=== PATIENT | male | born 1955 | race Caucasian/White ===

== ENCOUNTER 2021-07-22 09:28 | Day surgery (SDC) | payer MEDICARE | END 2021-07-22 10:10 | disposition home or self-care (01) | LOC: SDC-PAIN 09:28 | PROVIDERS: ATTEND Psychiatry & Neurology Pain Medicine | DX: Z53.09 Procedure and treatment not carried out because of other contraindication (principal); E11.9 Type 2 diabetes mellitus without complications; B02.29 Other postherpetic nervous system involvement; Z79.899 Other long term (current) drug therapy | CPT/HCPCS: 82947 ==

== ENCOUNTER 2021-07-22 10:17 | Emergency (ER) | payer MEDICARE ==
--- NOTE | 2021-07-22 10:36 | ERPHSYRPT ---
- History of Present Illness Time Seen by Provider: 07/22/21 10:35 Source: patient Exam Limitations: no limitations Patient Subjective Stated Complaint: SOB Triage Nursing Assessment: Patient brought back to ED via w/c and transferred self to bed. Patient A+O x3. Patient's skin pink, warm and dry. Patient states he was here at hospital to get a pain injection done per Dr. Cortes when they checked his blood sugar and it was [address] Cortes would not do injection. Patient stated he has been having left sided abdominal pain, which is causing him to have SOB. Lungs clear a/p thao. Physician History: This is a 65-year-old obese white male who has chronic low back pain and sees Dr. Cortes periodically for injections of steroids in his back. A blood sugar was obtained prior to injection and was 273 and therefore the procedure was canceled. Patient also has a left lower quadrant colostomy in place. Has been there approximately 5 to 6 months. He has pain at the colostomy site as well. Patient was sent to the emergency room because of his level of pain and blood sugar of 273. Patient has a history of hypertension, elevated cholesterol and type 2 diabetes. Patient smokes cigarettes daily. Patient had some shortness of breath but he felt this was secondary to the pain is having in his back and colostomy site. Timing/Duration: today Activities at Onset: none Severity of Dyspnea-Max: mild Severity of Dyspnea-Current: mild (To moderate to moderate) Possible Cause: occasional episodes Associated Symptoms: No cough, No chest pain/discomfort, No wheezing Allergies/Adverse Reactions: No Known Drug Allergies Allergy (Unverified 07/22/21 10:19) Hx Influenza Vaccination/Date Given: No Hx Pneumococcal Vaccination/Date Given: No Immunizations Up to Date: Yes Travel Risk - International Travel Have you traveled outside of the country in past 3 weeks: No - Coronavirus Screening Are you exhibiting any of the following symptoms?: No Close contact with a COVID-19 positive Pt in past 14-21 Days: No - Vaccine Status Have you recieved a Covid-19 vaccination: Yes 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 - Vaccination Dates Date of 2cond Vaccination (if applicable): na Dates if Unknown: na - Review of Systems Constitutional: No Symptoms Eyes: No Symptoms Ears, Nose, & Throat: No Symptoms Respiratory: No Symptoms, No Cough, No Dyspnea Cardiac: No Symptoms, No Chest Pain Abdominal/Gastrointestinal: Abdominal Pain (Pericolostomy in the left lower quadrant), No Nausea, No Vomiting Genitourinary Symptoms: No Symptoms Musculoskeletal: Back Pain Skin: No Symptoms Neurological: No Symptoms Psychological: No Symptoms Endocrine: No Symptoms Hematologic/Lymphatic: No Symptoms Immunological/Allergic: No Symptoms All Other Systems: Reviewed and Negative - Past Medical History Pertinent Past Medical History: Yes Neurological History: No Pertinent History Cardiac History: High Cholesterol, Hypertension Endocrine Medical History: Diabetes Type II Musculoskeletal History: No Pertinent History GI Medical History: GERD History: No Pertinent History Psycho-Social History: No Pertinent History Male Reproductive Disorders: No Pertinent History Other Medical History: chronic back pain sees Dr. Almodovar - Past Surgical History Past Surgical History: Yes Neuro Surgical History: No Pertinent History Cardiac: No Pertinent History Respiratory: No Pertinent History Gastrointestinal: Bowel Surgery Genitourinary: No Pertinent History Musculoskeletal: Orthopedic Surgery Male Surgical History: No Pertinent History Other Surgical History: double hip replacement. colostomy 6 months ago - Social History Smoking Status: Current every day smoker How long have you smoked: years Exposure to second hand smoke: No Drug Use: none Patient Lives Alone: Yes - Nursing Vital Signs Nursing Vital Signs: Initial Vital Signs Temperature 97.2 F 07/22/21 10:22 Pulse Rate 87 07/22/21 10:22 Respiratory Rate 18 07/22/21 10:22 Blood Pressure 162/93 07/22/21 10:22 O2 Sat by Pulse Oximetry 98 07/22/21 10:22 Pain Scale Pain Intensity 5 - Physical Exam General Appearance: no apparent distress, alert, anxiety, obese Eye Exam: PERRL/EOMI, eyes nml inspection Ears, Nose, Throat Exam: hearing grossly normal, normal ENT inspection, normal pharynx Neck Exam: normal inspection, non-tender, supple, full range of motion Respiratory Exam: normal breath sounds, lungs clear, airway intact, No chest tenderness, No respiratory distress Cardiovascular/Chest Exam: normal heart sounds, regular rate/rhythm Abdominal/Gastrointestinal Exam: soft, normal bowel sounds, tenderness (Mild when palpating around the ostomy site in the left lower quadrant.), other (No evidence of any periostomy infection or abscess. Skin is intact. 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, normal mood/affect, sensation nml Skin Exam: normal color, warm, dry Lymphatic Exam: No adenopathy SpO2 Interpretation: normal SpO2: 98 O2 Delivery: Room Air - Course Nursing assessment & vital signs reviewed: Yes Ordered Tests: Active Orders 24 hr Category Date Time Status EKG-ER Only STAT Care 07/22/21 10:51 Active Pulse Oximetry (ED) STAT Care 07/22/21 10:51 Active CHEST WITH CONTRAST [CT] Stat Exams 07/22/21 13:17 Completed CBC W DIFF Stat Lab 07/22/21 10:55 Completed CMP Stat Lab 07/22/21 10:55 Completed D-DIMER QUANTITATIVE Stat Lab 07/22/21 11:15 Completed Lactic Acid Stat Lab 07/22/21 10:51 Completed Lactic Acid Stat Lab 07/22/21 13:03 Received NT PRO BNP Stat Lab 07/22/21 10:55 Completed TROPONIN Q3H Lab 07/22/21 10:55 Completed TROPONIN Q3H Lab 07/22/21 14:00 Ordered TROPONIN Q3H Lab 07/22/21 17:00 Ordered TROPONIN Q3H Lab 07/22/21 20:00 Ordered TROPONIN Q3H Lab 07/22/21 23:00 Ordered Medication Summary Discontinued Medications Generic Name Dose Route Start Last Admin Trade Name Freq PRN Reason Stop Dose Admin Hydromorphone HCl 1 mg 07/22/21 12:09 07/22/21 12:35 Hydromorphone 1 Mg/1ml Inj 1 Mg/Ml Syringe IM 07/22/21 12:10 1 mg STAT ONE Administration Hydromorphone HCl Confirm 07/22/21 12:18 Hydromorphone 1 Mg/1ml Inj 1 Mg/Ml Syringe Administered 07/22/21 12:19 Dose 1 mg .ROUTE .STK-MED ONE Sodium Chloride 500 mls @ 500 mls/hr 07/22/21 11:37 07/22/21 13:25 Sodium Chloride 0.9% 500 Ml IV 07/22/21 12:36 Infused .Q1H ONE Infusion Sodium Chloride Confirm 07/22/21 11:55 Sodium Chloride 0.9% 500 Ml Administered 07/22/21 11:56 Dose 500 mls @ ud IV .STK-MED ONE Prochlorperazine Edisylate 5 mg 07/22/21 12:09 07/22/21 12:34 Prochlorperazine Edisylate 10 Mg/2 Ml Vial IM 07/22/21 12:10 5 mg STAT ONE Administration Prochlorperazine Edisylate Confirm 07/22/21 12:18 Prochlorperazine Edisylate 10 Mg/2 Ml Vial Administered 07/22/21 12:19 Dose 10 mg .ROUTE .STK-MED ONE Lab/Rad Data: Laboratory Result Diagrams 07/22/21 10:55 07/22/21 10:55 Laboratory Results 07/22/21 07/22/21 07/22/21 Range/Units 11:15 10:55 10:55 WBC (4.0-10.5) K/mm3 RBC (4.1-5.6) M/mm3 Hgb (12.5-18.0) gm/dl Hct (42-50) % MCV (78-100) fl MCH (26-32) pg MCHC (32-36) g/dl RDW (11.5-14.0) % Plt Count (150-450) K/mm3 MPV (7.5-11.0) fl Gran % (36.0-66.0) % Eos # (Auto) (0-0.5) Absolute Lymphs (auto) (1.0-4.6) Absolute Monos (auto) (0.0-1.3) Lymphocytes % (24.0-44.0) % Monocytes % (0.0-12.0) % Eosinophils % (0.00-5.0) % Basophils % (0.0-0.4) % Absolute Granulocytes (1.4-6.9) Basophils # (0-0.4) D-Dimer 1002 H* (215-500) ng/mL Sodium 137 (137-145) mmol/L Potassium 4.0 (3.5-5.1) mmol/L Chloride 107 (98-107) mmol/L Carbon Dioxide 21 L (22-30) mmol/L Anion Gap 13.7 (5-15) MEQ/L BUN 17 (9-20) mg/dL Creatinine 0.81 (0.66-1.25) mg/dL Estimated GFR > 60.0 ML/MIN Glucose 271 H (74-106) mg/dL Lactic Acid (0.4-2.0) Calcium 9.2 (8.4-10.2) mg/dL Total Bilirubin 0.60 (0.2-1.3) mg/dL AST 21 (17-59) U/L ALT 18 (0-50) U/L Alkaline Phosphatase 115 (38-126) U/L Troponin I < 0.012 (0.000-0.034) ng/mL NT-Pro-B Natriuret Pep 301 (0-900) pg/mL Serum Total Protein 7.0 (6.3-8.2) g/dL Albumin 4.0 (3.5-5.0) g/dL 07/22/21 07/22/21 Range/Units 10:55 10:51 WBC 12.2 H (4.0-10.5) K/mm3 RBC 5.40 (4.1-5.6) M/mm3 Hgb 15.0 (12.5-18.0) gm/dl Hct 44.7 (42-50) % MCV 82.8 (78-100) fl MCH 27.8 (26-32) pg MCHC 33.6 (32-36) g/dl RDW 14.4 H (11.5-14.0) % Plt Count 251 (150-450) K/mm3 MPV 11.7 H (7.5-11.0) fl Gran % 74.0 H (36.0-66.0) % Eos # (Auto) 0.50 (0-0.5) Absolute Lymphs (auto) 1.36 (1.0-4.6) Absolute Monos (auto) 1.29 (0.0-1.3) Lymphocytes % 11.1 L (24.0-44.0) % Monocytes % 10.5 (0.0-12.0) % Eosinophils % 4.1 (0.00-5.0) % Basophils % 0.3 (0.0-0.4) % Absolute Granulocytes 9.05 H (1.4-6.9) Basophils # 0.04 (0-0.4) D-Dimer (215-500) ng/mL Sodium (137-145) mmol/L Potassium (3.5-5.1) mmol/L Chloride (98-107) mmol/L Carbon Dioxide (22-30) mmol/L Anion Gap (5-15) MEQ/L BUN (9-20) mg/dL Creatinine (0.66-1.25) mg/dL Estimated GFR ML/MIN Glucose (74-106) mg/dL Lactic Acid 2.2 H (0.4-2.0) Calcium (8.4-10.2) mg/dL Total Bilirubin (0.2-1.3) mg/dL AST (17-59) U/L ALT (0-50) U/L Alkaline Phosphatase (38-126) U/L Troponin I (0.000-0.034) ng/mL NT-Pro-B Natriuret Pep (0-900) pg/mL Serum Total Protein (6.3-8.2) g/dL Albumin (3.5-5.0) g/dL - Progress Progress: improved, re-examined Air Movement: good Progress Note: 07/22/21 13:34 CTA of chest shows no pneumothorax. There is no pulmonary embolus. There is no evidence of any pneumonia or acute cardiopulmonary process. Blood Culture(s) Obtained: No Antibiotics given: No Counseled pt/family regarding: lab results, diagnosis, need for follow-up, rad results - Departure Departure Disposition: Home Clinical Impression: Acute exacerbation of chronic low back pain, Hyperglycemia Condition: Stable Critical Care Time: No Referrals: RADHA VO MD [Primary Care Provider] - Follow up/PCP as directed Additional Instructions: Call your prescribing physician today to make arrangements for both a follow-up appointment and for them to refill your gabapentin medication if indicated. Take your medications as prescribed. Prescriptions: Hydrocodone/APAP 5/325 [[place] 5/325 mg] 1 each PO Q12H PRN PRN #4 tablet MDD 2 PRN Reason: Pain Orphenadrine Citrate 100 mg [Norflex 100 MG Tablet] 100 mg PO BID #10 tab
[2021-07-22 11:03] LABS: Absolute Neutrophil Ct (ANC) 9.05 (1.4-6.9); Basophil (Absolute #) 0.04 (0-0.4); Eosinophil % 4.1 % (0.00-5.0); Hematocrit 44.7 % (42-50); Lymphocyte (Absolute #) 1.36 (1.0-4.6); Lymphocytes % 11.1 % (24.0-44.0); Mean Cell Volume 82.8 fl (78-100); Mean Corpuscular Hemoglobin 27.8 pg (26-32); Mean Corpuscular Hgb Concent. 33.6 g/dl (32-36); Mean Platelet Volume 11.7 fl (7.5-11.0); Monocyte (Absolute #) 1.29 (0.0-1.3); Monocytes % 10.5 % (0.0-12.0); Platelet Count 251 K/mm3 (150-450); Red Cell Distribution Width 14.4 % (11.5-14.0); White Blood Count 12.2 K/mm3 (4.0-10.5)
[2021-07-22 11:26] LABS: ALKALINE PHOSPHATASE 115 U/L (38-126); ANION GAP 13.7 MEQ/L (5-15); BLOOD UREA NITROGEN 17 mg/dL (9-20); CHLORIDE 107 mmol/L (98-107); Calcium 9.2 mg/dL (8.4-10.2); Carbon Dioxide 21 mmol/L (22-30); Creatinine 1 0.81 mg/dL (0.66-1.25); EST GLOMERULAR FILTRATION RATE > 60.0 ML/MIN; Glucose 271 mg/dL (74-106); NT PRO BNP 301 pg/mL (0-900); SGOT/AST 21 U/L (17-59); SGPT/ALT 18 U/L (0-50); SODIUM 137 mmol/L (137-145)
[2021-07-22] MEDS ORDERED: Sodium Chloride 0.9% 500 ML 500 ML IV ONE ×2 (11:37→11:55)
[2021-07-22] MEDS ORDERED: Compazine 10 MG/2 ML IM ONE (12:09)
[2021-07-22] MEDS ORDERED: Hydromorphone 1 mg/ml Injection IM ONE (12:09)
[2021-07-22] MEDS ORDERED: Hydromorphone 1 mg/ml Injection ONE (12:18)
[2021-07-22] MEDS ORDERED: Compazine 10 MG/2 ML ONE (12:18)
--- NOTE | 2021-07-22 13:30 | XRAY ---
Indication: Short of breath. Elevated d-dimer and WBC. Multiple contiguous axial images obtained through the chest using 80 cc Isovue 370 contrast and PE protocol. Comparison: None There is good opacification of the pulmonary arteries to include the lobar and segmental branches. No pulmonary embolus. Heart is not enlarged. Aorta is minimally arteriosclerotic without aneurysm/dissection. No pathologic mediastinal/hilar lymphadenopathy. Lungs inflated and clear. Bony thorax intact with mild degenerative changes throughout the spine. Limited upper abdomen demonstrates minimal pneumobilia and incompletely visualized 1.4 cm left mid renal cyst. Impression: 1. Degenerative spondylosis, pneumobilia, and incompletely visualized left renal cyst. 2. Remaining CT chest pulmonary embolus exam is normal.
[2021-07-22 13:39] VITALS: O2SAT 98
[2021-07-22 14:41] VITALS: BP 139/80; PULSE 78
== END 2021-07-22 14:23 | disposition home or self-care (01) ==
LOC: ED 10:17
DX: G89.29 Other chronic pain (principal); M54.50 Low back pain, unspecified; E11.65 Type 2 diabetes mellitus with hyperglycemia; I10 Essential (primary) hypertension; E78.5 Hyperlipidemia, unspecified; Z72.0 Tobacco use; Z79.891 Long term (current) use of opiate analgesic
CPT/HCPCS: 36000; 36415; 71260; 80053; 83605; 83880; 84484; 85025; 85379; 93005; 94760; 96374; 96375; 99284; J1170